=== PATIENT | male | born 1980 | race Caucasian/White ===

== ENCOUNTER 2017-10-31 11:57 | Emergency (ER) | payer SELFPAY ==
[~2017-10-31] VITALS: Ht 170.2 cm; Wt 84.0 kg
[2017-10-31 12:00] VITALS: Ht 170.2 cm; Wt 84.0 kg
--- NOTE | 2017-10-31 12:51 | RADRPT ---
PROCEDURE: XR RIGHT KNEE. CLINICAL INDICATION: Right medial knee pain. TECHNIQUE: Three views of the right knee are available for review. COMPARISON: None available FINDINGS: The bones are well aligned. No evidence for fracture, subluxation or dislocation. No evidence for erosive change. No radiopaque foreign body identified. No evidence for joint effusion. IMPRESSION: 1. Unremarkable right knee x-ray series. 2. No acute fracture or dislocation is seen. RPTAT: XX .Kevin Grant MD, Date Time Electronically viewed and signed by .Kevin Grant MD, on 10/31/2017 12:51 .T/
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
[2017-10-31] MEDS ORDERED: IBUP-1542 PO (13:07)
[2017-10-31] MEDS ORDERED: BACL10TA PO (13:07)
== END 2017-10-31 13:46 | disposition home or self-care (01) ==
LOC: FTE 11:57
DX: S89.91XA Unspecified injury of right lower leg, initial encounter (principal); V03.10XA Pedestrian on foot injured in collision with car, pick-up truck or van in traffic accident, initial encounter
CPT/HCPCS: 73562